=== PATIENT | male | born 1980 | race Hispanic/Latino ===

== ENCOUNTER → 2017-06-09 | Outpatient (CLI) | payer BC, OTHER ==
[~2017-06-09] MED LIST: AMOX500C2 PO
== END ==
LOC: WOUNDCARE 13:50
PROVIDERS: ATTEND Surgery
DX: L97.212 Non-pressure chronic ulcer of right calf with fat layer exposed (principal); S81.802A Unspecified open wound, left lower leg, initial encounter
CPT/HCPCS: 11042

== ENCOUNTER → 2017-06-16 | Outpatient (CLI) | payer BC | LOC: WOUNDCARE 13:06 | PROVIDERS: ATTEND Surgery | DX: L97.212 Non-pressure chronic ulcer of right calf with fat layer exposed (principal); S81.802A Unspecified open wound, left lower leg, initial encounter | CPT/HCPCS: 11042 ==

== ENCOUNTER → 2017-07-02 | Outpatient (CLI) | payer BC | LOC: WOUNDCARE 13:02 | PROVIDERS: ATTEND Surgery | DX: L97.212 Non-pressure chronic ulcer of right calf with fat layer exposed (principal); I87.331 Chronic venous hypertension (idiopathic) with ulcer and inflammation of right lower extremity; S81.802A Unspecified open wound, left lower leg, initial encounter | CPT/HCPCS: 11042; 87070; 87075; 87205 ==

== ENCOUNTER → 2017-07-02 | Outpatient (CLI) | payer BC ==
[2017-07-02 15:07] LABS: BASOPHILS # (AUTO) 0.1 10^3/uL (0.0-0.1); BASOPHILS % (AUTO) 1 % (0-10); EOSINOPHILS # (AUTO) 0.3 10^3/uL (0.0-0.3); EOSINOPHILS % (AUTO) 4 % (0-10); LYMPHOCYTES # (AUTO) 2.4 X 10^3 (1.0-4.0); LYMPHOCYTES % (AUTO) 31 % (12-44); MEAN CORPUSCULAR HEMOGLOBIN 30 PG (25-34); MEAN CORPUSCULAR HGB CONC 34 G/DL (32-36); MEAN CORPUSCULAR VOLUME 90 FL (80-99); MEAN PLATELET VOLUME 10.7 FL (7.4-10.4); MONOCYTES % (AUTO) 13 % (0-12); NEUTROPHILS # (AUTO) 4.1 X 10^3 (1.8-7.8); NEUTROPHILS % (AUTO) 52 % (42-75); PLATELET COUNT 208 10^3/uL (130-400); RED BLOOD COUNT 4.95 10^6/uL (4.35-5.85); WHITE BLOOD COUNT 7.9 10^3/uL (4.3-11.0)
[2017-07-02 15:33] LABS: ALANINE AMINOTRANSFERASE 18 U/L (0-55); ALBUMIN 4.1 GM/DL (3.2-4.5); ANION GAP 6 MMOL/L (5-14); ASPARTATE AMINO TRANSFERASE 20 U/L (5-34); BILIRUBIN,TOTAL 0.5 MG/DL (0.1-1.0); BLOOD UREA NITROGEN 14 MG/DL (7-18); BUN/CREATININE RATIO 16; CALCIUM 8.9 MG/DL (8.5-10.1); CARBON DIOXIDE 29 MMOL/L (21-32); CHLORIDE 103 MMOL/L (98-107); CREATININE SERUM 0.89 MG/DL (0.60-1.30); GFR ESTIMATED > 60; GLUCOSE 84 MG/DL (70-105); SODIUM 138 MMOL/L (135-145); TOTAL PROTEIN 7.2 GM/DL (6.4-8.2)
== END ==
LOC: LAB 14:43
PROVIDERS: ATTEND Surgery
DX: L97.212 Non-pressure chronic ulcer of right calf with fat layer exposed (principal); I87.331 Chronic venous hypertension (idiopathic) with ulcer and inflammation of right lower extremity; S81.802A Unspecified open wound, left lower leg, initial encounter; I70.232 Atherosclerosis of native arteries of right leg with ulceration of calf; X58.XXXA Exposure to other specified factors, initial encounter; Y99.8 Other external cause status
CPT/HCPCS: 36415; 80053; 85025

== ENCOUNTER → 2017-07-09 | Outpatient (CLI) | payer BC | LOC: WOUNDCARE 14:58 | PROVIDERS: ATTEND Surgery | DX: L97.212 Non-pressure chronic ulcer of right calf with fat layer exposed (principal); I87.331 Chronic venous hypertension (idiopathic) with ulcer and inflammation of right lower extremity; S81.802A Unspecified open wound, left lower leg, initial encounter | CPT/HCPCS: 11042 ==

== ENCOUNTER → 2017-07-16 | Outpatient (CLI) | payer BC | LOC: WOUNDCARE 12:46 | PROVIDERS: ATTEND Surgery | DX: L97.212 Non-pressure chronic ulcer of right calf with fat layer exposed (principal); I87.331 Chronic venous hypertension (idiopathic) with ulcer and inflammation of right lower extremity; S81.802A Unspecified open wound, left lower leg, initial encounter | CPT/HCPCS: 11042 ==

== ENCOUNTER → 2017-07-23 | Outpatient (CLI) | payer BC | LOC: WOUNDCARE 12:54 | PROVIDERS: ATTEND Surgery | DX: L97.212 Non-pressure chronic ulcer of right calf with fat layer exposed (principal); I87.331 Chronic venous hypertension (idiopathic) with ulcer and inflammation of right lower extremity; S81.802A Unspecified open wound, left lower leg, initial encounter | CPT/HCPCS: 11042 ==

== ENCOUNTER → 2017-07-30 | Outpatient (CLI) | payer BC | LOC: WOUNDCARE 12:42 | PROVIDERS: ATTEND Surgery | DX: I87.331 Chronic venous hypertension (idiopathic) with ulcer and inflammation of right lower extremity (principal); L97.212 Non-pressure chronic ulcer of right calf with fat layer exposed; S81.802A Unspecified open wound, left lower leg, initial encounter | CPT/HCPCS: 29581 ==

== ENCOUNTER → 2017-08-06 | Outpatient (CLI) | payer BC | LOC: WOUNDCARE 12:45 | PROVIDERS: ATTEND Surgery | DX: I87.331 Chronic venous hypertension (idiopathic) with ulcer and inflammation of right lower extremity (principal); L97.212 Non-pressure chronic ulcer of right calf with fat layer exposed; S81.802A Unspecified open wound, left lower leg, initial encounter | CPT/HCPCS: 99212 ==

== ENCOUNTER 2019-10-13 17:36 | Emergency (ER) | payer BC ==
[~2019-10-13] VITALS: Ht 187 cm; Wt 118.6 kg
--- NOTE | 2019-10-13 19:19 | ED General ---
General Chief Complaint: Cough/Cold/Flu Symptoms Stated Complaint: SORE THROAT,COUGH Nursing Triage Note: pt presents to ed with complaints of cough since last night. pt also reports mild body aches. Nursing Sepsis Screen: No Definite Risk Source of Information: Patient Exam Limitations: No Limitations History of Present Illness Date Seen by Provider: Oct 13, 2019 Time Seen by Provider: 19:18 Initial Comments To ER with cough since last night, mild body aches, no sore throat no fevers. Sister had influenza B earlier today. Timing/Duration: 1-2 Days Severity: Moderate Allergies and Home Medications Allergies Coded Allergies: No Known Drug Allergies (Unverified , 04/27/11) Home Medications No Active Prescriptions or Reported Meds Patient Home Medication List Home Medication List Reviewed: Yes Review of Systems Review of Systems Constitutional: see HPI EENTM: see HPI Respiratory: see HPI, cough Cardiovascular: no symptoms reported Genitourinary: no symptoms reported Musculoskeletal: no symptoms reported Skin: no symptoms reported Psychiatric/Neurological: No Symptoms Reported Hematologic/Lymphatic: No Symptoms Reported Past Akfzdqn-Eutyjz-Iuyszs Hx Patient Social History Alcohol Use: Occasionally Uses Recreational Drug Use: No Smoking Status: Current Someday Smoker Type Used: Cigarettes Recent Foreign Travel: No Contact w/Someone Who Travel: No Recent Infectious Disease Expo: No Recent Hopitalizations: No Physical Abuse: No Sexual Abuse: No Mistreated: No Fear: No Seasonal Allergies Seasonal Allergies: No Past Medical History Surgeries: No Respiratory: No Cardiac: Yes Peripheral Vascular Neurological: No Genitourinary: No Gastrointestinal: No Musculoskeletal: No Endocrine: No HEENT: No Cancer: No Psychosocial: No Integumentary: No Blood Disorders: No Physical Exam Vital Signs Vital Signs - First Documented 10/13/19 10/13/19 18:17 18:55 Temp 37.1 Pulse 72 Resp 20 B/P (MAP) 138/78 (98) Pulse Ox 96 O2 Delivery Room Air Capillary Refill : Less Than 3 Seconds Height, Weight, BMI Height: '" Weight: lbs. oz. kg; 33.00 BMI Method: General Appearance: No Apparent Distress, WD/WN Eyes: Bilateral Eye Normal Inspection, Bilateral Eye PERRL, Bilateral Eye EOMI HEENT: PERRL/EOMI, TMs Normal Respiratory: No Accessory Muscle Use, No Respiratory Distress Gastrointestinal: Normal Bowel Sounds, Non Tender, Soft Extremity: Normal Capillary Refill, Normal Inspection Neurologic/Psychiatric: Alert, Oriented x3 Skin: Normal Color, Warm/Dry Progress/Results/Core Measures Suspected Sepsis Recent Fever Within 48 Hours: No Infection Criteria Present: None New/Unexplained Altered Menta: No Sepsis Screen: No Definite Risk SIRS Temperature: Pulse: 72 Respiratory Rate: 20 Blood Pressure 138 /78 Mean: 98 Results/Orders Micro Results Microbiology 10/13/19 Influenza Types A,B Antigen (KATEY) - Final, Complete My Orders Orders - PATY SAM APRN Influenza A And B Antigens (10/13/19 18:32) Vital Signs/I&O 10/13/19 10/13/19 18:17 18:55 Temp 37.1 Pulse 72 Resp 20 B/P (MAP) 138/78 (98) Pulse Ox 96 O2 Delivery Room Air Capillary Refill : Less Than 3 Seconds Blood Pressure Mean: 98 Departure Impression Primary Impression: Influenza-like symptoms Disposition: 01 HOME, SELF-CARE Condition: Stable Departure-Patient Inst. Decision time for Depature: 19:28 Referrals: NO,LOCAL PHYSICIAN (PCP/Family) Primary Care Physician Patient Instructions: NO INSTRUCTIONS GIVEN Add. Discharge Instructions: Tylenol and Motrin for any body aches 2. Return to ER for any concerns 3. Tamiflu once daily for 10 days to reduce the likelihood of you johnny the flu. All discharge instructions reviewed with patient and/or family. Voiced understanding. Scripts Oseltamivir Phosphate (Tamiflu) 75 Mg Cap 75 MG PO DAILY, #10 CAP Prov: PATY SAM APRN 10/13/19 PATY SAM APRN Oct 13, 2019 19:19
[2019-10-13] MEDS ORDERED: OSLT75C PO (19:29)
[2019-10-13 19:33] VITALS: BP 138/68
== END 2019-10-13 19:33 | disposition home or self-care (01) ==
LOC: EDUNIT# 17:36 → ER 17:38
DX: R09.89 Other specified symptoms and signs involving the circulatory and respiratory systems (principal); F17.210 Nicotine dependence, cigarettes, uncomplicated
CPT/HCPCS: 87804